=== PATIENT | male | born 1945 | race Caucasian/White ===

== ENCOUNTER 2020-05-04 19:11 | Emergency (ER) | payer OTHER ==
[~2020-05-04] VITALS: Ht 180.3 cm; Wt 83.9 kg
--- NOTE | ~2020-05-04 | EMS ---
[facility] [address] [place] [address] EMS Patient Care Report Name: RUSSELL TOVAR Room #: REG DANIEL Ramey#: [id number] Admission: 05/04/20 Attend Phys: Discharge: Date of : 41 Report #: [id number] THIS REPORT FOR: //name// Report Transmitted: 05/04/2020 20:33 EMS Care Summary [facility] MED-ACT Incident [id number] @ 05/04/2020 18:27 Incident Location [address] [place] [address] Patient RUSSELL TOVAR Male, 74 Years 1945 Patient Address [address] [place], [place] [id number] Patient History Hypertension (HTN),Hyperlipidemia,Gastro-Esophageal Reflux Disease (GERD),Arthritis, Patient Allergies No known allergies, Patient Medications Azelastine, Other, Zolpidem, Fluticasone, Metoprolol, Pantoprazole, Propranolol, Atorvastatin, Tamsulosin, Losartan, Aspirin, Meloxicam, Omeprazole, Chief Complaint Syncope Disposition Transported No Lights/[place] Reason Unconscious/Fainting Transported To [facility] [address] [place] [address] EMS Patient Care Report Name: RUSSELL TOVAR Room #: LATISHA Ramey#: [id number] Admission: 05/04/20 Attend Phys: Discharge: Date of : 41 Report #: [id number] found the pt sitting in a chair at a local [employer] shop with bystanders around him. The bystanders reported that the pt was standing behind the counter when he all of a sudden went limp and fell to the floor. Bystanders reported that the pt hit the cabinets that were behind him. They were able to get the pt up to the chair and called 911. The pt stated that he doesn't remember passing out and wasn't sure why he passed out. The pt stated that he was feeling better when EMS was talking to the pt. EMS took the pt to the ambulance to perform a 12 lead and talk to the pt about the incident this evening. There was no significant findings on the pt's 12 lead. The pt continued to tell EMS that he didn't know what happened or why he passed out. He stated that he had 1 beer and 2 or 3 Scotches prior to the incident. He stated that he didn't feel any chest pain or headaches prior to passing out. The pt was hesitant about going to the hospital, stating that he thinks that he might of had to much to drink this evening. The pt continued to state he didn't know why this happened tonight. After some discussion with EMS the pt agreed to go to the ED for evaluation. The pt denies any chest pain, shortness of breath, headache, blurred vision, abdominal pain, nausea/vomiting, diarrhea, recent illness, or recent trauma. The pt was transported to [facility] in a position of comfort. The pt condition remained unchanged en route and with hand off to [place] ED RN. The pt was able to stand and transfer from EMS cot to ED bed in room 8. Initial Vitals @18:45P: 74,BP: 115/77, @18:44P: 70, @18:41P: 69,R: 14,DE Suspected: false @18:54P: 75,SpO2: 94,DE Suspected: false @19:03P: 72,R: 14,BP: 136/97,Pain: 0/10,GCS: 15,SpO2: 97,Revised Trauma: 12, @19:02P: 87,SpO2: 96, @18:34P: 73,R: 14,BP: 109/71,Pain: 0/10,GCS: 15,SpO2: 95,Revised Trauma: 12, Assessments @18:34MENTAL:Person Oriented,Time Oriented,Event Oriented,Place Oriented,SKIN:HEENT:Head/Face: No Abnormalities,Eyes: No Abnormalities,Neck/Airway: No Abnormalities,LUNG SOUNDS:General: No Abnormalities,ABDOMEN:General: No Abnormalities,PELVIS//GI:No Abnormalities,EXTREMITIES:Left Arm: No Abnormalities,Right Arm: No Abnormalities,Left Leg: No Abnormalities,Right Leg: No Abnormalities,PULSE:Radial: 2+ Normal,NEURO:No Abnormalities, Impression Syncope / Fainting Procedures @18:4112-Lead ECGResponse: UnchangedSucceeded@18:4412-Lead ECGResponse: [facility] [address] [place] [address] EMS Patient Care Report Name: RUSSELL TOVAR Room #: LATISHA Ramey#: [id number] Admission: 05/04/20 Attend Phys: Discharge: Date of : 41 Report #: [id number] UnchangedSucceeded Timeline 18:25,Call Received 18:25,Psap Call 18:27,Dispatched 18:27,En Route 18:31,On Scene 18:32,At Patient 18:34,BP: 109/71 M,PULSE: 73,RR: 14 R,SPO2: 95 Ox,ETCO2: ,BG: ,PAIN: 0,GCS: 15, 18:41,12-Lead ECG,Response: UnchangedSucceeded, 18:41,BP: / M,PULSE: 69,RR: 14 R,SPO2: Ox,ETCO2: ,BG: ,PAIN: ,GCS: , 18:44,12-Lead ECG,Response: UnchangedSucceeded, 18:44,BP: / M,PULSE: 70,RR: R,SPO2: Ox,ETCO2: ,BG: ,PAIN: ,GCS: , 18:45,BP: 115/77 M,PULSE: 74,RR: R,SPO2: Ox,ETCO2: ,BG: ,PAIN: ,GCS: , 18:51,Depart Scene 18:54,BP: / M,PULSE: 75,RR: R,SPO2: 94 Ox,ETCO2: ,BG: ,PAIN: ,GCS: , 19:02,BP: / M,PULSE: 87,RR: R,SPO2: 96 Ox,ETCO2: ,BG: ,PAIN: ,GCS: , 19:03,BP: 136/97 M,PULSE: 72,RR: 14 R,SPO2: 97 Ox,ETCO2: ,BG: ,PAIN: 0,GCS: 15, 19:10,At Destination 19:25,Call Closed Disclaimer v1.1 Copyright 2020 [employer] This EMS Care Summary contains data elements from the applicable legal record (which may be displayed differently). It is designed to provide pertinent information for the following purposes: continuity of care, clinical quality, and state data reporting. The complete legal record is available to ED staff and administrators of the receiving hospital in [employer]'s Patient Tracker. All data is provided "as is."
[~2020-05-04 19:11] MED LIST: AFRIN SALINE NA30 ML; FLOMAX; NYQUIL D COLD295 ML
[2020-05-04] MEDS ORDERED: AZELASTINE137 MCG/0. NASAL (19:26)
[2020-05-04] MEDS ORDERED: LOSARTAN POTAS100 MG PO (19:27)
[2020-05-04] MEDS ORDERED: LIPITOR10 MG PO (19:27)
[2020-05-04] MEDS ORDERED: FLONASE 0.05%50 MCG NARES (19:27)
[2020-05-04] MEDS ORDERED: MELOXICAM15 MG PO (19:28)
[2020-05-04] MEDS ORDERED: ASA81BEC PO (19:28)
[2020-05-04] MEDS ORDERED: NABUMETONE 500500 M2 PO (19:33)
[2020-05-04] MEDS ORDERED: TOPROL XL50 MG PO (19:33)
[2020-05-04] MEDS ORDERED: OMEPRAZOLE 20 M20 M1 PO (19:34)
[2020-05-04] MEDS ORDERED: PROTONIX40 M2 PO (19:35)
[2020-05-04] MEDS ORDERED: AMBIEN CR12.5 MG PO (19:35)
[2020-05-04] MEDS ORDERED: TAMSULOSIN HCL0.4 MG PO (19:35)
[2020-05-04] MEDS ORDERED: PROPRANOLOL 20M20 M1 PO (19:35)
[2020-05-04 20:12] LABS: ABSOLUTE NEUTROPHILS 10.6 thou/uL (1.4-8.2); BASOPHILS 0.2 % (0.0-2.0); EOSINOPHILS 1.2 % (0.0-3.0); HEMATOCRIT 42.8 % (42.0-52.0); HEMOGLOBIN 14.1 gm/dL (14.0-18.0); LYMPHOCYTES 12.7 % (24.0-44.0); MCH 31.5 pg (26.0-34.0); MCV 95.6 fL (80.0-100.0); MONOCYTES 8.6 % (1.0-8.0); PLATELET COUNT 187 thou/uL (150-400); POLYS 77.3 % (36.0-66.0); RBC 4.48 mil/uL (4.50-6.00); RDW 14.2 % (10.5-14.5); WBC 13.8 thou/uL (4.0-11.0)
[2020-05-04 20:23] LABS: ANION GAP 13 mmol/L (7-16); BUN 11 mg/dL (7-18); CALCIUM 8.6 mg/dL (8.5-10.1); CHLORIDE 103 mmol/L (98-107); CO2 22 mmol/L (21-32); CREATININE 0.9 mg/dL (0.7-1.3); GLUCOSE 96 mg/dL (74-106); POTASSIUM 4.6 mmol/L (3.5-5.1); SODIUM 138 mmol/L (136-145)
[2020-05-04 20:34] LABS: ALBUMIN 3.5 g/dL (3.4-5.0); DIRECT BILIRUBIN 0.1 mg/dL (<0.1-0.2); SGOT 26 U/L (15-37); SGPT 19 U/L (30-65); TOTAL BILIRUBIN 0.6 mg/dL (0.2-1.0); TOTAL PROTEIN 6.7 g/dL (6.4-8.2); TROPONIN-I <0.06 ng/mL (<0.06)
[2020-05-04 21:49] VITALS: BP 134/74
--- NOTE | 2020-05-05 16:44 | EKG ---
[facility] [place] [address] [address] [place] [address] ELECTROCARDIOGRAM REPORT Name: RUSSELL TOVAR Room #: DEP Karoline#: [id number] Admission: 05/04/20 Attend Phys: Discharge: 05/04/20 Date of : 41 Report #: [id number] THIS REPORT FOR: cc: Junior Verdugo MD, Neal A. MD Lundgren,Burke lAexandra MD [facility] ~ THIS REPORT FOR: //name// 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: [facility] : 1945 Requested By: Chela Roque Order Number: [id number] MD: Burke Whelan Measurements Intervals [place] Rate: 61 P: 108 OH: 287 QRS: 4 QRSD: 113 T: -1 QT: 422 QTc: 425 Interpretive Statements Sinus rhythm Occasional premature ventricular complexes Prolonged OH interval Probable inferior infarct, age indeterminate Compared to ECG 06/27/2010 01:01:58 Ventricular premature complex(es) now present Inferior Q waves are more pronounced Electronically Signed On 05-05-2020 16:44:49 CDT by Burke Whelan [email or web address] <ELECTRONICALLY SIGNED> By: Burke Whelan MD, FAC 05/05/20 1644 16 16 Burke Whelan MD, [facility] /EPI
== END 2020-05-04 21:49 | disposition left against medical advice (07) ==
LOC: ER 19:11
PROVIDERS: Emergency Medicine
DX: R55 Syncope and collapse (principal); F17.210 Nicotine dependence, cigarettes, uncomplicated; Z79.899 Other long term (current) drug therapy; Z79.82 Long term (current) use of aspirin; Z53.29 Procedure and treatment not carried out because of patient's decision for other reasons

== ENCOUNTER → 2020-05-08 | Outpatient (CLI) | payer OTHER ==
[~2020-05-08] MED LIST changes: +AMBIEN CR12.5 MG PO; +ASA81BEC PO; +AZELASTINE137 MCG/0. NASAL; +FLONASE 0.05%50 MCG NARES; +LIPITOR10 MG PO; +LOSARTAN POTAS100 MG PO; +MELOXICAM15 MG PO; +NABUMETONE 500500 M2 PO; +OMEPRAZOLE 20 M20 M1 PO; +PROPRANOLOL 20M20 M1 PO; +PROTONIX40 M2 PO; +TAMSULOSIN HCL0.4 MG PO; +TOPROL XL50 MG PO
== END ==
LOC: SJCVC 15:16
PROVIDERS: ATTEND Internal Medicine
DX: R94.31 Abnormal electrocardiogram [ECG] [EKG] (principal); I10 Essential (primary) hypertension; E78.2 Mixed hyperlipidemia; Z79.899 Other long term (current) drug therapy

== ENCOUNTER → 2020-05-24 | Outpatient (CLI) | payer OTHER | LOC: SJCVCIMAG 09:44 | PROVIDERS: ATTEND Internal Medicine | DX: I08.1 Rheumatic disorders of both mitral and tricuspid valves (principal); I44.0 Atrioventricular block, first degree; R00.0 Tachycardia, unspecified; I10 Essential (primary) hypertension; E78.5 Hyperlipidemia, unspecified; Z72.0 Tobacco use ==